=== PATIENT | male | born 1955 | race African-American/Black ===

== ENCOUNTER → 2024-06-23 | Day surgery (SDC) | payer MEDICARE ==
[2024-06-20 14:15] LABS: BASOPHILS % 0.4 % (0.0-1.0); EOSINOPHILS # (AUTO) 0.3 (0.0-0.4); EOSINOPHILS % 3.8 % (0.0-6.0); HEMATOCRIT 43.7 % (38.2-49.6); HEMOGLOBIN 13.9 g/dL (14.0-18.0); LYMPHOCYTES # (AUTO) 1.5 (1.0-3.2); LYMPHOCYTES % 19.5 % (18.0-39.1); MEAN CORPUSCULAR HEMOGLOBIN 29.2 pg (28-32); MEAN CORPUSCULAR HGB CONC 31.8 g/dL (31-35); MEAN CORPUSCULAR VOLUME 91.8 fL (81-99); MONOCYTES # (AUTO) 0.9 (0.2-0.8); MONOCYTES % 11.6 % (4.4-11.3); NEUTROPHILS # (AUTO) 4.9 (2.1-6.9); NEUTROPHILS % 63.9 % (38.7-80.0); PLATELET COUNT 206 x10e3/uL (140-360); RED BLOOD COUNT 4.76 x10e6/uL (4.3-5.7); WHITE BLOOD COUNT 7.68 x10e3/uL (4.8-10.8)
[~2024-06-23] MED LIST: ACETAMINOPHEN-1 EAC4 PO; ARICEPT5 MG PO; METOPROLOL SUCC50 MG PO
[2024-06-23] MEDS: LACTATED RINGER'S 1,000 ML ONE (08:07)
[2024-06-23 10:57] VITALS: TEMP 97.6
[2024-06-23 11:40] VITALS: BP 175/85; PULSE 76; RESP 16; O2SAT 97
== END | disposition home or self-care (01) ==
LOC: OR 06:31
PROVIDERS: ATTEND Plastic Surgery
DX: L72.11 Pilar cyst (principal); L72.0 Epidermal cyst; L72.3 Sebaceous cyst; I10 Essential (primary) hypertension; R06.00 Dyspnea, unspecified; F03.90 Unspecified dementia, unspecified severity, without behavioral disturbance, psychotic disturbance, mood disturbance, and anxiety; Z01.810 Encounter for preprocedural cardiovascular examination; Z01.812 Encounter for preprocedural laboratory examination; Z79.899 Other long term (current) drug therapy
CPT/HCPCS: 21012; 21931; 36415; 85025; 88304; 93005; J0690; J7121